=== PATIENT | male | born 1950 | race Caucasian/White ===

== ENCOUNTER 2024-12-23 09:59 | Outpatient (AMB) | payer MEDICARE, SELFPAY ==
[2024-12-23 10:05] VITALS: BP 120/80; PULSE 56; O2SAT 96; BMI 24.3
--- NOTE | 2024-12-23 10:05 | MHC.OFFVIS ---
Vital Signs 12/23/24 10:05 Height 5 ft 11.5 in Weight 176 lb 5.917 oz BMI 24.3 BP 120/80 Blood Pressure Location Lt brachial Position Sitting Pulse 56 Pulse Source Pulse Oximeter Pulse Oximetry (%) 96 Oxygen Delivery Method Room Air Intake Visit Reasons: L FOOT PAIN Intake Note: Patient presents today with left foot pain from gout. Allergies iodine Allergy (Severe, Verified 12/23/24 10:08) Anaphylaxis HPI HPI L FOOT PAIN: Details: No recent epsiode of foot swelling. He denies joint pain. [facility] Surgical History (Updated 12/23/24 @ 10:09 by Jia Son CMA) H/O prostatectomy Review of Systems Const All systems reviewed & are unremarkable except as noted in HPI and below Physical Exam Vital Signs: Last Vital Signs Pulse 56 12/23/24 10:05 BP 120/80 12/23/24 10:05 Pulse Ox 96 12/23/24 10:05 Oxygen Delivery Method Room Air 12/23/24 10:05 BMI result Body Mass Index 24.3 Const Other: General: Comfortable CVS: RRR Respiratory: clear to auscultation bilaterally. Good respiratory effort Skin: Venous stasis changes on left distal foot MSK: No tenderness of any joints. Normal range of motion of upper extremity and lower extremity. No synovitis. 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 Each of the episodes were triggered with an injury or had a temporal relationship of occurrence after prostate cancer treatment. No recurrence of symptoms in at least a year. Code(s): M25.476 - Effusion, unspecified foot Category: Medical Plan: Monitor clinically [facility] Return to clinic as needed. Patient will call when he has a flare for evaluation and diagnostic arthrocentesis if he has joint swelling. Patient is in agreement with plan. Coding Level of Care Code Est Pt Level 3 (38853) Complex EM visit Add On G2211 Diagnoses Swelling of foot joint M25.476
== END 2024-12-23 10:25 | disposition home or self-care (01) ==
LOC: HO.RHES 09:59
PROVIDERS: PCP Family Medicine; Visit Provider Internal Medicine Rheumatology
DX: M25.476 Effusion, unspecified foot (principal)
CPT/HCPCS: 99213; G2211

== ENCOUNTER → 2024-12-23 09:59 | Outpatient (BNVA) | payer MEDICARE, SELFPAY | PROVIDERS: PCP Family Medicine; Visit Provider Internal Medicine Rheumatology | DX: M25.476 Effusion, unspecified foot (principal) | CPT/HCPCS: 99212 ==